=== PATIENT | male | born 1955 | race Caucasian/White ===

== ENCOUNTER → 2021-05-11 | Outpatient (CLI) | payer OTHER | LOC: EXRD 09:46 | DX: R10.13 Epigastric pain (principal); M25.50 Pain in unspecified joint; E55.9 Vitamin D deficiency, unspecified; F17.290 Nicotine dependence, other tobacco product, uncomplicated; M51.9 Unspecified thoracic, thoracolumbar and lumbosacral intervertebral disc disorder; R76.0 Raised antibody titer; M81.0 Age-related osteoporosis without current pathological fracture; R93.2 Abnormal findings on diagnostic imaging of liver and biliary tract | CPT/HCPCS: 76705 ==

== ENCOUNTER → 2022-01-19 | Outpatient (CLI) | payer OTHER | LOC: EXRD 10:30 | DX: M81.0 Age-related osteoporosis without current pathological fracture (principal); M25.50 Pain in unspecified joint; E55.9 Vitamin D deficiency, unspecified; F17.290 Nicotine dependence, other tobacco product, uncomplicated; M25.561 Pain in right knee; M51.9 Unspecified thoracic, thoracolumbar and lumbosacral intervertebral disc disorder; R76.0 Raised antibody titer; Z76.89 Persons encountering health services in other specified circumstances | CPT/HCPCS: 77080 ==